=== PATIENT | female | born 1965 | race Caucasian/White ===

== ENCOUNTER → 2016-09-29 | Outpatient (REF) | payer OTHER ==
[~2016-09-29] MED LIST: LAMI25TA PO; LEVO10VL PO; MULT1CHW21 PO; SERO50TA PO; VITA100L PO; VITA200028 PO; VITA400T15 PO; VITACRY3 PO; WELLTAB38 PO
[2016-09-29 21:45] LABS: FREE T4 1.38 NG/DL (0.76-1.46)
== END ==
LOC: M SFHCADAM 14:05
PROVIDERS: ATTEND Physician Assistant Medical
DX: E55.9 Vitamin D deficiency, unspecified (principal); E03.9 Hypothyroidism, unspecified

== ENCOUNTER → 2016-10-30 | Outpatient (CLI) | payer OTHER ==
--- NOTE | 2016-10-30 15:12 | REP ---
ULTRASOUND SOFT TISSUES NECK: Real-time sonographic evaluation of the soft tissue neck performed in the region of the palpable abnormality. The palpable abnormality corresponds to the right lobe of the thyroid gland, which is diffusely heterogenous, measuring 3.4 x 1.2 x 1.4 cm, and the left lobe 3.4 x 1.2 x 1.1 cm. In the adjacent right neck soft tissues is a non-enlarged lymph node measuring 17 x 4 x 9 mm. IMPRESSION: The reported palpable abnormality corresponds to the thyroid. Both lobes of the thyroid are normal in size and diffusely heterogeneous in echotexture with no cystic or solid nodule. Signed by Hung Olson MD 10/30/2016 08:03 P
== END ==
LOC: M RAD 12:52
PROVIDERS: ATTEND Physician Assistant Medical
DX: R22.1 Localized swelling, mass and lump, neck (principal)

== ENCOUNTER → 2017-08-09 | Outpatient (CLI) | payer OTHER | LOC: M ADAMS 13:11 | DX: R05 Cough (principal) ==

== ENCOUNTER → 2018-11-01 | Outpatient (REF) | payer OTHER ==
[2018-11-01 20:39] LABS: ALBUMIN 3.9 GM/DL (3.2-5.2); ALT/SGPT 22 U/L (12-78); BILIRUBIN,TOTAL 0.4 MG/DL (0.2-1.0); BLOOD UREA NITROGEN 9 MG/DL (7-18); CALCIUM LEVEL 8.8 MG/DL (8.5-10.1); CARBON DIOXIDE LEVEL 30 MEQ/L (21-32); CHLORIDE LEVEL 105 MEQ/L (98-107); CREATININE FOR GFR 0.74 MG/DL (0.55-1.30); GLOMERULAR FILTRATION RATE > 60.0 (>51); GLUCOSE, FASTING 81 MG/DL (70-100); POTASSIUM SERUM 4.4 MEQ/L (3.5-5.1); SODIUM LEVEL 141 MEQ/L (136-145); TOTAL 25(OH) VITAMIN D 54.3 NG/ML (30.0-100.0); TOTAL PROTEIN 7.3 GM/DL (6.4-8.2)
== END ==
LOC: M SFHCADAM 14:43
PROVIDERS: ATTEND Physician Assistant Medical
DX: E03.9 Hypothyroidism, unspecified (principal); E55.9 Vitamin D deficiency, unspecified

== ENCOUNTER → 2018-11-01 | Outpatient (CLI) | payer OTHER ==
--- NOTE | 2018-11-02 06:32 | REP ---
Clinical: Neck pain. Technique: AP, lateral, flexion/extension, bilateral oblique, and open-mouth views of the cervical spine. Findings: Mild reversal of normal lordosis along with advanced multilevel degenerative disc osteophyte complexes are appreciated. Findings include osteophytosis, endplate sclerosis/heterogeneity, disc space narrowing and facet hypertrophy. Open mouth view demonstrates normal C1-C2 articulation and odontoid process. No obvious acute fracture / compression injury or subluxation. Impression: Advanced multilevel degenerative spondylosis. Electronically Signed by Isaac Greenberg MD 11/02/2018 06:23 A
== END ==
LOC: M ADAMS 14:56
PROVIDERS: ATTEND Physician Assistant Medical
DX: M25.78 Osteophyte, vertebrae (principal); M47.892 Other spondylosis, cervical region

== ENCOUNTER → 2018-12-12 | Outpatient (CLI) | payer OTHER ==
[2018-12-12 20:24] LABS: FREE T4 0.98 NG/DL (0.76-1.46); THYROID STIMULATING HORMONE 4.14 uIU/ML (0.358-3.740)
== END ==
LOC: M WUC 15:39
PROVIDERS: ATTEND Physician Assistant Medical
DX: F17.210 Nicotine dependence, cigarettes, uncomplicated (principal)

== ENCOUNTER → 2019-01-19 | Outpatient (CLI) | payer OTHER ==
--- NOTE | 2019-01-19 09:57 | REP ---
MRI CERVICAL SPINE WITHOUT CONTRAST: HISTORY: Disc degeneration. Comparison radiographs are from November 01, 2018. TECHNIQUE: Sagittal and axial T1- and T2-weighted scans are acquired in the usual fashion with and without fat saturation. Sequences include spin echo, turbo spin-echo, and STIR imaging sequences. MRI FINDINGS: There is reversal of the normal cervical lordosis with fairly impressive cervical kyphosis. This is a little more prominent than at was visible on the radiographs. Cervical cord is normal in coarse caliber and signal intensity. No abnormal cord signal is seen. Axial and sagittal images taken at the C2-3 level demonstrate minimal left central disc bulging. At C3-4, there is degenerative narrowing of the disc. A left posterior disc protrusion is seen with indentation of the thecal sac and flattening of the left ventral lateral margin of the cord. There is left-sided uncovertebral spurring at C3-4 producing neural foraminal narrowing. Minimal right-sided uncovertebral spurring is present. At C4-5, there is diffuse posterior disc bulging effacing the ventral thecal sac at and flattening the ventral margin of the cord. No central canal stenosis is seen. There is mild bilateral uncovertebral spurring at C4-5. There is neural foraminal narrowing on the left. Fairly prominent anterior spurring is seen at C4-5. At C5-6, there is diffuse disc bulging and osteophytic ridging most pronounced on the left side of the posterior disc margin. This flattens the left ventral margin of the cord and there is mild central canal stenosis at this level. Midline AP dimension of the thecal sac is 7.7 mm at this level. There is bilateral uncovertebral spurring, left more so than right with left-sided foraminal stenosis. At C6-7, there is also degenerative narrowing of the disc with reactive marrow changes on either side of this narrowed disc. There is diffuse posterior disc bulging at C6-7. This effaces the ventral subarachnoid space. There is mild central canal narrowing at C6-7. The mid line AP dimension of the thecal sac at the point 5 mm here. There is left-sided foraminal narrowing and right-sided foraminal narrowing from uncovertebral spurring. The C7-T1 level shows no significant abnormality. There is a right-sided perineural cyst. IMPRESSION: Degenerative spondylosis change is fairly advanced. There is mild central canal stenosis at C5-6 and C6-7. Multilevel neural foraminal narrowing is seen as above. There is a left posterior disc protrusion at C3-4. Electronically Signed by Jozef Jacobs MD 01/19/2019 10:14 A
--- NOTE | 2019-01-20 09:48 | REP ---
MRI LUMBAR SPINE WITHOUT CONTRAST: HISTORY: Disc degeneration. Rule out stenosis or disc herniation. Comparison radiographs are from December 29, 2018. No comparison MRI study is available. TECHNIQUE: Sagittal and axial T1- and T2-weighted scans are acquired in the usual fashion with and without fat saturation. Sequences include spin echo, turbo spin-echo, and STIR imaging sequences. MRI FINDINGS: There is a moderate levoconvex lumbar scoliosis again noted. Lumbar vertebral body heights are preserved. There are reactive marrow changes associated with degenerative disc disease at the L1-2 and L3-4 disc levels. Degenerative changes are noted to some degree in the each of the other lumbar levels as well. The conus medullaris tip is normal in position and appearance at L1. No extra vertebral abnormality is observed. There is diffuse disc bulging at the T12-L1 disc level effacing the ventral subarachnoid space but not compressing or cord. At L1-L2, there is diffuse disc bulging and posterior osteophytic ridging which effaces the ventral subarachnoid space. There is mild central canal stenosis at L1-L2 due to this as well as facet and ligamentum flavum hypertrophy which is present bilaterally. There is no foraminal narrowing seen. At the L2-3, there is also diffuse disc bulging which in combination with ligamentum flavum hypertrophy produces mild central canal stenosis. No foraminal stenosis is seen. At L3-4, there is diffuse moderate disc bulging. Pedicles are developmentally short. There is ligamentum flavum hypertrophy. These factors combine to produce moderate central canal stenosis at L3-4. Midline AP dimension of the thecal sac is 7.3 mm. The nerve roots exit the neural foramen surrounded by epidural fat without evidence of compression. At L4-5, there is diffuse disc bulging. Mild to moderate central canal stenosis is noted due to this in combination with moderate facet and ligamentum flavum hypertrophy, which is present bilaterally. At L4-5, there is a mild left-sided foraminal narrowing due to facet hypertrophy. At L5-S1, there is diffuse disc bulging. Facet hypertrophy and ligamentum flavum hypertrophy are noted. No central canal stenosis is noted but there is mild bilateral foraminal stenosis, left greater than right. This is due to facet hypertrophy and slight disc bulging. IMPRESSION: Degenerative spondylosis changes. Multilevel central canal stenosis most pronounced at L3-4 L4-5. Neural foraminal narrowing as above. Electronically Signed by Jozef Jacobs MD 01/20/2019 10:14 A
== END ==
LOC: M RAD 08:09
PROVIDERS: ATTEND Physician Assistant
DX: M51.36 Other intervertebral disc degeneration, lumbar region (principal)

== ENCOUNTER → 2019-02-17 | Outpatient (CLI) | payer OTHER | LOC: M WUC 11:54 | PROVIDERS: ATTEND Physician Assistant Medical | DX: E03.9 Hypothyroidism, unspecified (principal) ==

== ENCOUNTER → 2019-03-27 | Outpatient (CLI) | payer OTHER ==
--- NOTE | 2019-03-27 12:53 | REP ---
PELVIC ULTRASOUND: Real-time sonographic evaluation of the pelvis performed utilizing transabdominal and endovaginal technique. Bladder measures 9.9 x 10.5 x 9.1 cm. Uterus measures 7.4 x 3.4 x 5.0 cm. Endometria thickness is 5 mm. There is no endometrial fluid collection. Right ovary is not visualized. Left ovary measures 2.1 x 1.5 x 1.9 cm. No adnexal mass is seen. No free fluid is seen. There is no evidence of left ovarian torsion, Resistive index 0.43 with duplex Doppler evaluation. In the posterior lower uterine segment of the uterus there is a fibroid which measures 2.5 x 1.7 x 2.3 cm. On the right posteriorly there is a calcified fibroid which measures 3.7 x 3.3 x 3.7 cm. IMPRESSION: Endometrial thickness 5 mm. Two uterine fibroids seen in the posterior lower uterine segment and right posterior uterus as discussed above. Right ovary is not seen. Otherwise no adnexal mass or free fluid.
== END ==
LOC: M WHC 08:47
PROVIDERS: ATTEND Family Medicine
DX: R10.2 Pelvic and perineal pain (principal); Z86.018 Personal history of other benign neoplasm

== ENCOUNTER → 2019-03-28 | Outpatient (REF) | payer OTHER ==
[2019-03-31 14:29] LABS: HPV HYBRID CAPTURE II Negative (Negative)
== END ==
LOC: M SFHCPLAZ 15:34
PROVIDERS: ATTEND Family Medicine
DX: Z12.4 Encounter for screening for malignant neoplasm of cervix (principal)
CPT/HCPCS: 87624; G0123; G0463

== ENCOUNTER → 2019-04-14 | Outpatient (REF) | payer OTHER ==
[2019-04-14 12:24] LABS: BASO % 0.4 % (0.0-1.0); EOS # 0.2 10^3/uL (0.0-0.5); EOS % 2.5 % (0.0-3.0); HEMATOCRIT 46.2 % (36.0-47.0); HEMOGLOBIN 15.7 g/dl (12.0-15.5); LYMPH # 1.9 10^3/uL (1.5-5.0); LYMPH % 20.9 % (24.0-44.0); MEAN CORPUSCULAR VOLUME 94.3 fl (80.0-96.0); MONO # 0.5 10^3/uL (0.0-0.8); MONO % 5.7 % (0.0-5.0); NEUTROPHILS # 6.5 10^3/uL (1.5-8.5); NEUTROPHILS % 70.2 % (36.0-66.0); PLATELET COUNT, AUTOMATED 318 10^3/uL (150-450); WHITE BLOOD COUNT 9.2 10^3/uL (4.0-10.0)
[2019-04-14 12:56] LABS: ALBUMIN 3.8 GM/DL (3.2-5.2); ALT/SGPT 15 U/L (12-78); BILIRUBIN,TOTAL 0.6 MG/DL (0.2-1.0); BLOOD UREA NITROGEN 10 MG/DL (7-18); CALCIUM LEVEL 9.4 MG/DL (8.5-10.1); CARBON DIOXIDE LEVEL 31 MEQ/L (21-32); CHLORIDE LEVEL 105 MEQ/L (98-107); GLOMERULAR FILTRATION RATE > 60.0 (>51); GLUCOSE, FASTING 100 MG/DL (70-100); POTASSIUM SERUM 4.6 MEQ/L (3.5-5.1); RHEUMATOID FACTOR QUANT < 10.0 IU/ML (<15.0); SODIUM LEVEL 140 MEQ/L (136-145); TOTAL PROTEIN 6.8 GM/DL (6.4-8.2)
[2019-04-14 13:26] LABS: ERYTHROCYTE SEDIMENTATION RATE 4 mm/hr (0-30)
[2019-04-15 15:57] LABS: ANTINUCLEAR ANTIBODIES DIRECT Negative (Negative)
== END ==
LOC: M LABNEURO 10:50
PROVIDERS: ATTEND Psychiatry & Neurology Neurology
DX: R51 Headache (principal)

== ENCOUNTER → 2019-05-05 | Outpatient (CLI) | payer OTHER ==
[2019-05-05 20:28] LABS: CHOLESTEROL RISK RATIO 2.876 (<5); THYROID STIMULATING HORMONE 6.73 uIU/ML (0.358-3.740)
[2019-05-09 00:07] LABS: Lyme Disease IgG/IgM Antibodie <0.91 ISR (0.00-0.90); Lyme Disease IgM Ab Quantitati <0.80 index (0.00-0.79)
== END ==
LOC: M WUC 15:35
PROVIDERS: ATTEND Family Medicine
DX: E03.9 Hypothyroidism, unspecified (principal); Z13.220 Encounter for screening for lipoid disorders; W57.XXXS Bitten or stung by nonvenomous insect and other nonvenomous arthropods, sequela

== ENCOUNTER → 2019-09-13 | Outpatient (REF) | payer OTHER ==
[2019-09-13 14:04] LABS: FREE T4 1.36 NG/DL (0.76-1.46); THYROID STIMULATING HORMONE 3.06 uIU/ML (0.358-3.740)
== END ==
LOC: M SFHCPLAZ 11:01
PROVIDERS: ATTEND Family Medicine
DX: E03.9 Hypothyroidism, unspecified (principal)
CPT/HCPCS: 36415; 84439; 84443; G0463

== ENCOUNTER → 2020-01-18 | Outpatient (CLI) | payer OTHER ==
--- NOTE | 2020-03-08 12:56 | REP ---
LOW DOSE LUNG SCREENING CT OF THE CHEST: TECHNIQUE: The study is performed without IV contrast. The images are presented at lung windowing only. COMPARISON: Chest CT with IV contrast dated 10/09/09. FINDINGS: There is a 5 mm calcified granuloma in the superior segment of the right lower lobe on image 53, not significantly changed from the comparison study. There are a few tiny 1-2 mm calcified granulomas in the lower lobes bilaterally. No other lung nodules or masses are identified. There are no infiltrates or pleural effusions. IMPRESSION: Category [address] of the chest. The probability of malignancy is less than 1%. Follow up annual screening low dose lung CT might be considered. MTDD
== END ==
LOC: M RAD 10:00
PROVIDERS: ATTEND Family Medicine
DX: R91.1 Solitary pulmonary nodule (principal); F17.210 Nicotine dependence, cigarettes, uncomplicated

== ENCOUNTER → 2020-08-01 | Outpatient (REF) | payer OTHER | LOC: M SFHCPLAZ 10:38 | PROVIDERS: ATTEND Family Medicine | DX: E03.9 Hypothyroidism, unspecified (principal) ==

== ENCOUNTER → 2020-09-17 | Outpatient (REF) | payer OTHER ==
[2020-09-17 17:43] LABS: HEMATOCRIT 42.3 % (36.0-47.0); HEMOGLOBIN 14.2 g/dl (12.0-15.5); MEAN CORPUSCULAR HEMOGLOBIN 31.4 pg (27.0-33.0); MEAN CORPUSCULAR HGB CONC 33.6 g/dl (32.0-36.5); MEAN CORPUSCULAR VOLUME 93.6 fl (80.0-96.0); PLATELET COUNT, AUTOMATED 316 10^3/uL (150-450); RED BLOOD COUNT 4.52 10^6/uL (4.00-5.40); WHITE BLOOD COUNT 6.9 10^3/uL (4.0-10.0)
== END ==
LOC: M PLALAB 15:19
PROVIDERS: ATTEND Family Medicine
DX: R42 Dizziness and giddiness (principal)

== ENCOUNTER → 2022-09-16 | Outpatient (CLI) | payer BC ==
[2022-09-16 22:23] LABS: BASO # 0.1 10^3/uL (0.0-0.2); BASO % 0.7 % (0.0-1.0); EOS # 0.2 10^3/uL (0.0-0.5); EOS % 3.4 % (0.0-3.0); HEMATOCRIT 47.1 % (36.0-47.0); HEMOGLOBIN 15.5 g/dl (12.0-15.5); LYMPH # 2.2 10^3/uL (1.5-5.0); LYMPH % 32.9 % (24.0-44.0); MEAN CORPUSCULAR HEMOGLOBIN 30.7 pg (27.0-33.0); MEAN CORPUSCULAR HGB CONC 32.9 g/dl (32.0-36.5); MEAN CORPUSCULAR VOLUME 93.3 fl (80.0-96.0); MONO # 0.4 10^3/uL (0.0-0.8); MONO % 6.6 % (2.0-8.0); NEUTROPHILS # 3.7 10^3/uL (1.5-8.5); NEUTROPHILS % 56.1 % (36.0-66.0); PLATELET COUNT, AUTOMATED 352 10^3/uL (150-450); RED BLOOD COUNT 5.05 10^6/uL (4.00-5.40); WHITE BLOOD COUNT 6.7 10^3/uL (4.0-10.0)
[2022-09-16 22:51] LABS: HEMOGLOBIN A1c 5.4 % (4.0-6.0)
[2022-09-16 22:52] LABS: ALBUMIN 3.9 G/DL (3.2-5.2); ALKALINE PHOSPHATASE 75 U/L (46-116); ALT/SGPT 16 U/L (7.0-40); AST/SGOT 19 U/L (<34); BILIRUBIN,DIRECT 0.1 MG/DL (<0.4); BILIRUBIN,TOTAL 0.4 MG/DL (0.3-1.2); BLOOD UREA NITROGEN 11 MG/DL (9-23); CALCIUM LEVEL 9.1 MG/DL (8.5-10.1); CARBON DIOXIDE LEVEL 30 MMOL/L (20-31); CHLORIDE LEVEL 103 MMOL/L (98-107); CHOLESTEROL LEVEL 201 MG/DL (<200); CHOLESTEROL RISK RATIO 3.18 (<5); CREATININE FOR GFR 0.69 MG/DL (0.55-1.30); GLOMERULAR FILTRATION RATE > 60.0 (>51); GLUCOSE, FASTING 149 MG/DL (60-100); HDL CHOLESTEROL 63.2 MG/DL (>40); LDL CHOLESTEROL 104.6 MG/DL (<100); NON-HDL-C 137.8 MG/DL; PHOSPHORUS LEVEL 3.6 MG/DL (2.5-4.9); POTASSIUM SERUM 3.9 MMOL/L (3.5-5.1); SODIUM LEVEL 137 MMOL/L (136-145); TOTAL PROTEIN 6.5 G/DL (5.7-8.2); TRIGLYCERIDES LEVEL 166 MG/DL (<150)
[2022-09-16 22:53] LABS: THYROID STIMULATING HORMONE 6.627 uIU/ML (0.55-4.78)
[2022-09-16 22:54] LABS: TOTAL 25(OH) VITAMIN D 22.8 NG/ML (20.0-100.0)
== END ==
LOC: M WUC 15:49
PROVIDERS: ATTEND Registered Nurse
DX: F43.10 Post-traumatic stress disorder, unspecified (principal)